=== PATIENT | male | born 1965 ===

== ENCOUNTER 2017-07-13 15:53 | Emergency (ER) | payer OTHER ==
[2017-07-13 16:05] VITALS: RESP 18
[2017-07-13] MEDS ORDERED: Sodium Chloride 0.9% 1,000 ML IV ONE (16:17)
--- NOTE | 2017-07-13 16:33 | C.PDOC ---
History Of Present Illness 51 y/o male presents to ED for evaluation of left flank pain radiating to left groin and left testicle. Denies history of renal colic. Alfred n/v/d, dysuria, frequency, hematuria, or fever. Time Seen by Provider: 07/13/17 16:13 Chief Complaint (Nursing): Abdominal Pain History Per: Patient History/Exam Limitations: no limitations Onset/Duration Of Symptoms: Days Current Symptoms Are (Timing): Still Present Radiation Of Pain To:: Flank (left) Quality Of Discomfort: "Pain" Associated Symptoms: denies: Urinary Symptoms Exacerbating Factors: None Alleviating Factors: None Recent travel outside of the [place]: No Additional History Per: Patient Past Medical History Reviewed: Historical Data, Nursing Documentation, Vital Signs Vital Signs: Last Vital Signs Temp 98.7 F 07/13/17 16:02 Pulse 79 07/13/17 16:02 Resp 18 07/13/17 16:02 BP 109/69 07/13/17 16:02 Pulse Ox 94 L 07/13/17 16:35 Family History: States: Unknown Family Hx - Social History Hx Alcohol Use: No Hx Substance Use: No - Immunization History Hx Tetanus Toxoid Vaccination: No Hx Influenza Vaccination: No Hx Pneumococcal Vaccination: No Review Of Systems Except As Marked, All Systems Reviewed And Found Negative. Constitutional: Negative for: Fever, Chills Gastrointestinal: Positive for: Abdominal Pain. Negative for: Nausea, Vomiting , Diarrhea Genitourinary: Positive for: Scrotal Pain. Negative for: Dysuria, Frequency, Hematuria Musculoskeletal: Positive for: Back Pain (left flank) Physical Exam - Physical Exam Appears: Non-toxic, No Acute Distress Skin: Normal Color, Warm, Dry Head: Atraumatic, Normacephalic Eye(s): bilateral: Normal Inspection Oral Mucosa: Moist Cardiovascular: Rhythm Regular Respiratory: Normal Breath Sounds, No Rales, No Rhonchi, No Wheezing Gastrointestinal/Abdominal: Soft, Tenderness (LLQ tenderness with deep palpation ), No Guarding, No Rebound, No Hernia Back: No CVA Tenderness Male Genital: Normal Inspection, No Testicular Tenderness, No Testicular Swelling, No Scrotal Swelling Extremity: Normal ROM Neurological/Psych: Oriented x3, Normal Speech ED Course And Treatment - Laboratory Results Result Diagrams: 07/13/17 16:46 07/13/17 16:46 Lab Interpretation: Normal (UA neg.) O2 Sat by Pulse Oximetry: 96 Pulse Ox Interpretation: Normal - Radiology CXR: Interpreted by Me CXR Interpretation: Yes: No Acute Disease - Other Rad abd x 2 X-Ray: Interpreted by Me, Read By Radiologist (large stool R colon, few small bowel loops distended (mild) c/w constipation) Progress Note: NS, toradol Reevaluation Time: 17:36 Reassessment Condition: Improved Medical Decision Making Medical Decision Making: Blood work, UA, obstructive series was ordered and reviewed. Pt was given IV fluids, and Toradol. 1730: no blood in urine, colicky L abd pain more likely bowel colic Disposition Doctor Will See Patient In The: Office Counseled Patient/Family Regarding: Studies Performed, Diagnosis - Disposition Disposition: HOME/ ROUTINE Disposition Time: 17:37 Condition: GOOD Forms: [facility] (Bahraini) - Clinical Impression Clinical Impression: Abdominal colic - Scribe Statement The provider has reviewed the documentation as recorded by the Scribe Jackie Lowery All medical record entries made by the Dioribsaranya were at my direction and personally dictated by me. I have reviewed the chart and agree that the record accurately reflects my personal performance of the history, physical exam, medical decision making, and the department course for this patient. I have also personally directed, reviewed, and agree with the discharge instructions and disposition.
--- NOTE | 2017-07-13 16:49 | RAD ---
Abdomen four views History: Abdominal pain. Comparison: None available. Findings: Mild venous congestion. Mild nodularity in the right infrahilar region. Moderate fecal retention in the colon. Calcified phleboliths in the pelvis. Degenerative changes in the spine and hips. Few mildly distended loops of small bowel seen within the left upper and mid abdomen. Impression: Moderate fecal retention in the colon. Few mildly distended loops of small bowel seen within the left upper and mid abdomen.
[2017-07-13 16:50] LABS: BASO % 0.6 % (0.0-2.0); EOS # 0.1 K/uL (0.0-0.7); EOS % 1.8 % (0.0-4.0); HEMOGLOBIN 14.6 g/dL (12.0-18.0); LYMPH # 2.1 K/uL (1.0-4.3); LYMPH % 34.1 % (20.0-40.0); MEAN CELL VOLUME 89.9 fL (80.0-94.0); MEAN CORPUSCULAR HEMOGLOBIN 31.6 pg (27.0-31.0); MEAN CORPUSCULAR HGB CONC 35.2 g/dL (33.0-37.0); MEAN PLATELET VOLUME 7.9 fL (7.2-11.7); MONO # 0.6 K/uL (0.0-0.8); MONO % 9.3 % (0.0-10.0); NEUT # 3.3 K/uL (1.8-7.0); NEUT % 54.2 % (50.0-75.0); RBC 4.62 Mil/uL (4.40-5.90); RED CELL DISTRIBUTION WIDTH 12.4 % (11.5-14.5); WHITE BLOOD COUNT 6.1 K/uL (4.8-10.8)
[2017-07-13] MEDS ORDERED: Sodium Chloride 0.9% 1,000 ML ONE (16:50)
[2017-07-13 16:57] LABS: URINE AMORPHOUS SEDIMENT RARE /ul (<OCC); URINE BACTERIA RARE (<OCC); URINE BILIRUBIN NEGATIVE (NEGATIVE); URINE BLOOD NEGATIVE (NEGATIVE); URINE CLARITY Hazy (Clear); URINE COLOR Yellow (YELLOW); URINE GLUCOSE (UA) NORMAL (Normal); URINE LEUKOCYTE ESTERASE NEG Leu/uL (Negative); URINE PROTEIN NEGATIVE (NEGATIVE)
[2017-07-13 17:02] LABS: ALB/GLOB RATIO 1.2 (1.0-2.1); ALBUMIN 3.9 g/dL (3.5-5.0); ALT/SGPT 34 U/L (21-72); AST/SGOT 20 U/L (17-59); BLOOD UREA NITROGEN 17 mg/dL (9-20); CALCIUM 8.9 mg/dl (8.6-10.4); GFR AFRICAN-AMERICAN > 60; GFR NON-AFRICAN AMERICAN > 60; LIPASE 72 U/L (23-300)
[2017-07-13 17:46] VITALS: BP 108/65; PULSE 62; TEMP 98.3; O2SAT 97
== END 2017-07-13 17:53 | disposition home or self-care (01) ==
LOC: C.ER 15:53
DX: R10.84 Generalized abdominal pain (principal)
CPT/HCPCS: 74022; 80053; 81001; 83690; 85025; 96361; 96374; 99284; J1885; J7030

== ENCOUNTER 2017-09-08 16:21 | Emergency (ER) | payer OTHER ==
[2017-09-08 16:44] VITALS: BP 116/75; PULSE 75; RESP 18; TEMP 98.2; O2SAT 98
--- NOTE | 2017-09-08 17:12 | C.PDOC ---
History Of Present Illness 52 y/o male presents to the ER complaining of bug in his left ear which has been present since last night. Patient reports that he tried self-extraction without success. Patient reports that he feels like the bug is still moving. Time Seen by Provider: 09/08/17 16:56 Chief Complaint (Nursing): ENT Problem History Per: Patient History/Exam Limitations: None Onset/Duration Of Symptoms: Days Current Symptoms Are (Timing): Still Present Severity: Moderate Past Medical History Reviewed: Historical Data, Nursing Documentation, Vital Signs Vital Signs: Last Vital Signs Temp 98.2 F 09/08/17 16:41 Pulse 75 09/08/17 16:41 Resp 18 09/08/17 16:41 BP 116/75 09/08/17 16:41 Pulse Ox 98 09/08/17 17:31 - Medical History PMH: No Chronic Diseases Family History: States: No Known Family Hx - Social History Hx Alcohol Use: No Hx Substance Use: No - Immunization History Hx Tetanus Toxoid Vaccination: No Hx Influenza Vaccination: No Hx Pneumococcal Vaccination: No Review Of Systems Except As Marked, All Systems Reviewed And Found Negative. ENT: Positive for: Other (bug in left ear) Physical Exam - Physical Exam Appears: Non-toxic, No Acute Distress Skin: Normal Color, Warm, Dry Head: Atraumatic, Normacephalic Eye(s): bilateral: Normal Inspection Ear(s): Left: Other (visualized insect in canal, TM- unable to visualize, no redness, no swelling, no bleeding), Right: Normal Respiratory: Other (NARD) Neurological/Psych: Oriented x3, Normal Speech ED Course And Treatment O2 Sat by Pulse Oximetry: 98 (RA) Pulse Ox Interpretation: Normal Reevaluation Time: 17:34 Reassessment Condition: Improved (PT ADVISED POSSIBLE RETAINED FB VS CERUMEN. PT INSTRUCTED TO FU ENT FOR REEVAL) Medical Decision Making Medical Decision Making: Plan: --Motrin PO --Tylenol PO Disposition Counseled Patient/Family Regarding: Diagnosis, Need For Followup - Disposition Referrals: [facility] [Outside] [facility] [Outside] Dave Montilla MD [Staff Provider] - Disposition: HOME/ ROUTINE Disposition Time: 17:33 Condition: IMPROVED Instructions: Removing Objects Stuck in the Ear Forms: [employer] (Occitan) Print Language: GUATEMALAN - Clinical Impression Clinical Impression: Ear foreign body - Scribe Statement The provider has reviewed the documentation as recorded by the Dioribe Tara Resendiz Provider Attestation: All medical record entries made by the Scribe were at my direction and personally dictated by me. I have reviewed the chart and agree that the record accurately reflects my personal performance of the history, physical exam, medical decision making, and the department course for this patient. I have also personally directed, reviewed, and agree with the discharge instructions and disposition. PROCEDURES - Foreign Body Removal Consent Obtained: verbal consent Time Out Performed: Yes Site: left, ear Description of foreign body: insect Sedation/Analgesia: none Technique: manual removal, removal with forceps, irrigation Confirmed by:: direct visualization (POSSIBLE RETAINED RESIDUAL INSECT FB VS CERUMEN AGAINST TM. NO CANAL SWELL, BLEEDING.) Complications:: None Post-procedure exam: Awake, alert Neurovascular: No change from pre-procedure
== END 2017-09-08 17:41 | disposition home or self-care (01) ==
LOC: C.ER 16:21
DX: T16.2XXA Foreign body in left ear, initial encounter (principal); X58.XXXA Exposure to other specified factors, initial encounter; Y92.9 Unspecified place or not applicable

== ENCOUNTER 2018-03-16 18:06 | Emergency (ER) | payer OTHER ==
[2018-03-16 18:43] VITALS: BP 118/72; PULSE 77; RESP 18; TEMP 98.4; O2SAT 96
[2018-03-16] MEDS ORDERED: Lidocaine 5% Patch TD STA (19:29)
[2018-03-16] MEDS ORDERED: Lidocaine 5% Patch TD ONE (19:37)
--- NOTE | 2018-03-16 20:37 | C.PDOC ---
History Of Present Illness Patient reports that he fell while at work and injured his lower back this morning. Patient reports that initially he felt no symptoms, but as the day progressed he states the pain worsened. Denies other injuries, headache, LOC, neck pain, chest pain, Time Seen by Provider: 03/16/18 19:13 Chief Complaint (Nursing): Back Pain History Per: Patient History/Exam Limitations: no limitations Onset/Duration Of Symptoms: Hrs Current Symptoms Are (Timing): Still Present Quality Of Discomfort: Unable To Describe Previous Symptoms: None Associated Symptoms: None. denies: Incontinence, New Weakness, New Numbness Exacerbating Factor(s): Turning, Movement Recent travel outside of the [place]: No Past Medical History Reviewed: Historical Data, Nursing Documentation, Vital Signs Vital Signs: Last Vital Signs Temp 98.4 F 03/16/18 18:40 Pulse 77 03/16/18 18:40 Resp 18 03/16/18 18:40 BP 118/72 03/16/18 18:40 Pulse Ox 96 03/16/18 18:40 Family History: States: Unknown Family Hx - Social History Hx Alcohol Use: No Hx Substance Use: No - Immunization History Hx Tetanus Toxoid Vaccination: No Hx Influenza Vaccination: No Hx Pneumococcal Vaccination: No Review Of Systems Constitutional: Negative for: Fever, Weakness Eyes: Negative for: Pain, Eyelid Inflammation ENT: Negative for: Ear Pain Cardiovascular: Negative for: Chest Pain, Palpitations Respiratory: Negative for: Cough, Shortness of Breath Gastrointestinal: Negative for: Abdominal Pain Genitourinary: Negative for: Dysuria, Incontinence, Hematuria Musculoskeletal: Positive for: Back Pain. Negative for: Neck Pain Neurological: Negative for: Weakness, Numbness, Headache, Other (LOC) Physical Exam - Physical Exam Appears: Non-toxic Skin: Normal Color, Warm, Dry, No Rash Head: Atraumatic, Normacephalic Eye(s): bilateral: Normal Inspection, PERRL, EOMI Oral Mucosa: Moist Throat: No Erythema, No Exudate Neck: Normal, No Midline Cervical Tenderness, No Paracervical Tenderness, Supple Chest: Symmetrical, No Deformity Cardiovascular: Rhythm Regular, No Friction Rub, No Murmur Respiratory: Normal Breath Sounds, No Accessory Muscle Use, No Rales, No Rhonchi Gastrointestinal/Abdominal: Bowel Sounds (active), Soft, No Tenderness Back: Other (Left sided lumbar muscle spasm and tenderness) Extremity: Normal ROM (x4), No Swelling Neurological/Psych: Oriented x3, Normal Speech, Normal Motor, Normal Sensation Gait: Steady ED Course And Treatment O2 Sat by Pulse Oximetry: 96 (Room air) Pulse Ox Interpretation: Normal - Other Rad LS spine x-ray X-Ray: Interpreted by Me, Viewed By Me Interpretation: No acute fracture or dislocation. Medical Decision Making Medical Decision Making: LS spine x-ray ordered, results were negative. Lidoderm applied, toradol administered. On reevaluation, patient is resting comfortably in no acute distress, ambulatory with steady gait, will discharge home with Rx and instructions to follow up with PMD. Disposition - Disposition Referrals: Farrukh Mariee MD [Non-Staff] - Disposition: HOME/ ROUTINE Disposition Time: 20:37 Condition: STABLE Additional Instructions: Follow up with the medical doctor within 1-2 days. Return if worsened. Prescriptions: Cyclobenzaprine [Flexeril] 5 mg PO TID #21 tab Lidocaine 5% [Lidoderm] 1 each TP DAILY #10 patch Naproxen [Naprosyn] 500 mg PO BID #20 tab Instructions: Low Back Pain in Adults Forms: [employer] (Faroese), Work Excuse Print Language: MAORI - Clinical Impression Clinical Impression: Contusion of back - PA / HUMAN PROJECTILE / Resident Statement MD/DO has reviewed & agrees with the documentation as recorded. - Scribe Statement The provider has reviewed the documentation as recorded by the Scribe Donovan Castro All medical record entries made by the Scribe were at my direction and p ersonally dictated by me. I have reviewed the chart and agree that the record accurately reflects my personal performance of the history, physical exam, medical decision making, and the department course for this patient. I have also personally directed, reviewed, and agree with the discharge instructions and disposition.
--- NOTE | 2018-03-17 09:04 | RAD ---
Date of service: 03/16/2018 PROCEDURE: Radiographs of the Lumbar Spine. HISTORY: low back pain, fall injury COMPARISON: No prior. FINDINGS: BONES: Normal alignment. No listhesis. No fracture. Minimal endplate spondylosis T12 and T11 and T10 DISC SPACES: Unremarkable. OTHER FINDINGS: Minimal sclerotic bilateral changes superior SI joint IMPRESSION: No lumbar fracture or lumbar lytic lesion. Thoracic level marginal osteophytes as above.
== END 2018-03-16 21:46 | disposition home or self-care (01) ==
LOC: C.ER 18:06
DX: S30.0XXA Contusion of lower back and pelvis, initial encounter (principal); W19.XXXA Unspecified fall, initial encounter; Y92.89 Other specified places as the place of occurrence of the external cause; Y99.0 Civilian activity done for income or pay
CPT/HCPCS: 72100; 96372; 99283; J1885

== ENCOUNTER 2018-03-21 11:42 | Emergency (ER) | payer OTHER ==
[2018-03-21 11:53] VITALS: PULSE 78; RESP 18; TEMP 97.6
[2018-03-21 12:14] VITALS: BP 119/79; O2SAT 96
--- NOTE | 2018-03-21 12:23 | C.PDOC ---
History Of Present Illness 52 y/o male pt presents to the ER c/o right lower back pain for x5 days. Pt reports he was at work lifting a ladder. Pain started later on during the day. Pt was seen before in ER and received XR. Pt was prescribed naprosyn, lidoderm and flexeril. Pt wasn't able to fill those prescriptions because he is unable to afford them. Pt now has an itchy rash where the lidoderm patch was. Pt denies new injury, radiation of pain, dysuria, hematuria and fever. Time Seen by Provider: 03/21/18 11:55 Chief Complaint (Nursing): Back Pain History Per: Patient History/Exam Limitations: no limitations Onset/Duration Of Symptoms: Days (x5) Current Symptoms Are (Timing): Still Present Past Medical History Reviewed: Historical Data, Nursing Documentation, Vital Signs Vital Signs: Last Vital Signs Temp 97.6 F 03/21/18 12:12 Pulse 78 03/21/18 12:12 Resp 18 03/21/18 12:12 BP 119/79 03/21/18 12:12 Pulse Ox 96 03/21/18 12:12 Family History: States: Unknown Family Hx - Social History Hx Alcohol Use: No Hx Substance Use: No - Immunization History Hx Tetanus Toxoid Vaccination: No Hx Influenza Vaccination: No Hx Pneumococcal Vaccination: No Review Of Systems Constitutional: Negative for: Other (new injury; radiating pain ) Genitourinary: Negative for: Dysuria, Hematuria Musculoskeletal: Positive for: Back Pain (right lower) Skin: Positive for: Rash Physical Exam - Physical Exam Appears: Non-toxic, No Acute Distress Skin: Warm, Dry Head: Normacephalic Cardiovascular: Rhythm Regular Respiratory: Normal Breath Sounds Gastrointestinal/Abdominal: Soft, No Tenderness Back: Other (lower back tenderness ) Extremity: Normal ROM (x4) Neurological/Psych: Oriented x3, Normal Speech, Normal Cognition, Normal Motor, Normal Sensation ED Course And Treatment O2 Sat by Pulse Oximetry: 96 (RA) Pulse Ox Interpretation: Normal Progress Note: Plans: -- Toradol. -- Flexeril. Reassess: On reassessment, patient is resting comfortably, with improvement of back pain. Patient remains afebrile, with no bony tenderness, extremity numbness or weakness, or abdominal pain. Patient feels better after medication and is ambulatory in the emergency department with no signs of discomfort. Patient is encouraged to fill flexeril prescription. Patient Patient was advised to follow up with physician/clinic in 1-2 days. Disposition Counseled Patient/Family Regarding: Diagnosis, Need For Followup - Disposition Referrals: [facility] [Outside] Disposition: HOME/ ROUTINE Disposition Time: 12:45 Condition: STABLE Additional Instructions: CONTINUE USING YOUR DICLOFENAC, AND USE IT WITH MUSCLE RELAXANT FLEXERIL FOLLOW UP WITH MEDICAL CLINIC IN 1-2 DAYS RETURN TO EMERGENCY ROOM IF YOUR SYMPTOMS WORSEN DO NOT USE LIDODERM PATCHES ANYMORE - YOU ARE ALLERGIC CONTINE USANDO THORNTON DICLOFENAC Y USELO CON MUSCLE RELAXANT FLEXERIL SEGUIR CON LA CLNICA MDICA EN 1-2 DODD VUELVA A LA MARVA DE EMERGENCIA SI SAMARIA SNTOMAS SE CALIX IMPLICADO NO UTILICE LOS PARCHES DE LIDODERM MS, USTED ES ALRGICO Instructions: Low Back Pain (DC) Forms: [employer] (Bruneian) Print Language: MONGOLIAN - Clinical Impression Clinical Impression: Lumbar sprain - Scribe Statement The provider has reviewed the documentation as recorded by the Manjeet Townsend Do Provider Attestation: All medical record entries made by the Scribe were at my direction and personally dictated by me. I have reviewed the chart and agree that the record accurately reflects my personal performance of the history, physical exam, medical decision making, and the department course for this patient. I have also personally directed, reviewed, and agree with the discharge instructions and disposition.
== END 2018-03-21 12:53 | disposition home or self-care (01) ==
LOC: C.ER 11:42
DX: S33.5XXD Sprain of ligaments of lumbar spine, subsequent encounter (principal); X50.9XXD Other and unspecified overexertion or strenuous movements or postures, subsequent encounter
CPT/HCPCS: 96372; 99283; J1885

== ENCOUNTER 2018-03-26 18:07 | Emergency (ER) | payer SELFPAY ==
[2018-03-26 18:12] VITALS: BP 122/78; PULSE 85; RESP 20; TEMP 98.7; O2SAT 98
[2018-03-26] MEDS ORDERED: Alum-Mag Hydrox-Simethicone Susp (30 mL) PO STA (19:20)
--- NOTE | 2018-03-26 19:22 | C.PDOC ---
History Of Present Illness 52 year old male presents to the ER complaining of epigastric pain for the past 3 days associated with some nausea. Patient states he gets the pain every few years, he usually lets it resolve on it's own but when he has gone to the hospital he has been given something he states was like milk of magnesia. He has not seen a GI for his symptoms. Denies dysuria, fever, vomiting, or diarrhea. Time Seen by Provider: 03/26/18 18:58 Chief Complaint (Nursing): Abdominal Pain History Per: Patient History/Exam Limitations: no limitations Onset/Duration Of Symptoms: Hrs Current Symptoms Are (Timing): Still Present Radiation Of Pain To:: None Quality Of Discomfort: Unable To Describe Associated Symptoms: Nausea. denies: Fever, Vomiting, Diarrhea, Other (Dysuria) Exacerbating Factors: None Alleviating Factors: None Recent travel outside of the [place]: No Past Medical History Reviewed: Historical Data, Nursing Documentation, Vital Signs Vital Signs: Last Vital Signs Temp 98.7 F 03/26/18 18:10 Pulse 85 03/26/18 18:10 Resp 20 03/26/18 18:10 BP 122/78 03/26/18 18:10 Pulse Ox 98 03/26/18 18:10 Family History: States: Unknown Family Hx - Social History Hx Alcohol Use: No (Ex) Hx Substance Use: No - Immunization History Hx Tetanus Toxoid Vaccination: No Hx Influenza Vaccination: No Hx Pneumococcal Vaccination: No Review Of Systems Except As Marked, All Systems Reviewed And Found Negative. Constitutional: Negative for: Fever Gastrointestinal: Positive for: Nausea, Abdominal Pain. Negative for: Vomiting Physical Exam - Physical Exam Additional Physical Exam Comments: Constitutional: No acute distress. Head: Normocephalic. Atraumatic. Eyes: PERRL. EOMI. ENT: Moist mucous membranes. Neck: Supple. Cardiovascular: Regular rate. Radial pulses 2+ bilaterally. Chest: No tenderness. Respiratory: Clear to auscultation bilaterally. GI: Epigastric tenderness. No guarding or rebound. Back: No CVA tenderness. Musculoskeletal: No tenderness or swelling of extremities. Skin: No rash. Neurologic: Alert, no focal deficit. ED Course And Treatment O2 Sat by Pulse Oximetry: 98 (Room air) Pulse Ox Interpretation: Normal Medical Decision Making Medical Decision Making: Refused labs or IV medications. Disposition - Disposition Disposition: ELOPEMENT - ER ONLY Disposition Time: 20:00 Condition: STABLE Forms: [facility] (Sao Tomean) - Clinical Impression Clinical Impression: Abdominal pain - Scribe Statement The provider has reviewed the documentation as recorded by the Scribe Donovan Castro All medical record entries made by the Scribe were at my direction and personally dictated by me. I have reviewed the chart and agree that the record accurately reflects my personal performance of the history, physical exam, medical decision making, and the department course for this patient. I have also personally directed, reviewed, and agree with the discharge instructions and disposition.
[2018-03-26] MEDS ORDERED: Alum-Mag Hydrox-Simethicone Susp (30 mL) ONE (20:36)
== END 2018-03-26 20:37 | disposition left against medical advice (07) ==
LOC: C.ER 18:07
DX: R10.13 Epigastric pain (principal)